=== PATIENT | female | born 1995 | race Hispanic/Latino ===

== ENCOUNTER 2024-07-29 16:24 | Outpatient (CLI) | payer OTHER | END 2024-07-29 16:25 | disposition home or self-care (01) | LOC: BICRAD 16:24 | PROVIDERS: ATTEND Family Medicine | DX: Z22.7 Latent tuberculosis (principal); R91.8 Other nonspecific abnormal finding of lung field | CPT/HCPCS: 71046 ==

== ENCOUNTER 2024-08-05 15:44 | Outpatient (CLI) | payer OTHER | END 2024-08-05 15:45 | disposition home or self-care (01) | LOC: BICCT 15:44 | PROVIDERS: ATTEND Family Medicine | DX: R91.8 Other nonspecific abnormal finding of lung field (principal); K76.0 Fatty (change of) liver, not elsewhere classified; L92.9 Granulomatous disorder of the skin and subcutaneous tissue, unspecified | CPT/HCPCS: 71250 ==